=== PATIENT | male | born 1980 | race Caucasian/White ===

== ENCOUNTER 2017-09-13 16:21 | Inpatient (IN) | payer MEDICARE, OTHER ==
[~2017-09-13] VITALS: Ht 175.3 cm; Wt 68.0 kg
--- NOTE | 2017-09-13 16:31 | NUR ---
NICOLASA FROM HOME DT HIGH BLOOD SUGAR, ABDOMINAL PAIN WITH NAUSEA AND VOMITTING X 2 DAYS. PATIENT RECEIVED AWAKE, HOWEVER LETHARGIC. PATIENT IS SATING WELL ON ROOM AIR. SKIN IS WARM TO TOUCH AND NON DIAPHORETIC. PATIENT IS AFEBRILE. IV INSERTED TO LAC 20.BLOOD SAMPLE COLLECTED AND SENT TO LAB. MD SKY AT BEDSIDE.
[2017-09-13] MEDS ORDERED: NPH,100V2 SQ (16:38)
[2017-09-13] MEDS ORDERED: INSU100V11 SQ (16:38)
[2017-09-13] MEDS ORDERED: PANT40TA4 PO (16:40)
[2017-09-13 16:55] LABS: BASOPHILS # (AUTO) 1.1 /CMM (0.0-0.2); BASOPHILS % (AUTO) 4.4 % (0.0-2.0); EOSINOPHILS % (AUTO) 0.1 % (0.0-6.0); HEMATOCRIT 46 % (39-51); HEMOGLOBIN 16.1 g/dL (13.5-17.5); LYMPHOCYTES # (AUTO) 1.5 /CMM (0.8-4.8); LYMPHOCYTES % (AUTO) 6.1 % (20.0-44.0); MEAN CORPUSCULAR HEMOGLOBIN 30 PG (26.0-33.0); MEAN CORPUSCULAR HGB CONC 35 g/dl (31.0-36.0); MEAN CORPUSCULAR VOLUME 85 fL (80-96); MONOCYTES # (AUTO) 1.7 /CMM (0.1-1.30); MONOCYTES % (AUTO) 6.9 % (2.0-12.0); NEUTROPHILS # (AUTO) 19.9 /CMM (1.8-8.9); NEUTROPHILS % (AUTO) 82.5 % (43.0-81.0); PLATELET COUNT (AUTO) 433 /CMM (150-450); RDW COEFFICIENT OF VARIATION 13.1 (11.5-15.0); RED BLOOD CELL COUNT(AUTO) 5.39 MIL/uL (4.5-6.0); WHITE BLOOD COUNT (AUTO) 24.2 K/uL (4.3-11.0)
[2017-09-13] MEDS ORDERED: INSULIN REGULAR, HUMAN 100 UNIT/ML 10 ML VIAL IV ONE (17:00)
[2017-09-13] MEDS ORDERED: ONDANSETRON HCL/PF 4 MG/2 ML VIAL IVP ONE ×2 (17:00→19:00)
[2017-09-13] MEDS ORDERED: IV NS 0.9% 1,000 ML BAG IV ONE ×3 (17:00→18:30)
[2017-09-13 17:19] LABS: ALBUMIN 4.3 g/dL (3.4-5.0); BILIRUBIN,DIRECT 0.1 mg/dL (0.0-0.2); BILIRUBIN,TOTAL 0.5 mg/dL (0.2-1.0); CALCIUM, SERUM 9.9 mg/dL (8.5-10.1); CREATININE 2.4 mg/dL (0.6-1.3); POTASSIUM 5.1 mmol/L (3.5-5.1); TOTAL PROTEIN, SERUM 9.2 g/dL (6.4-8.2)
[2017-09-13] MEDS ORDERED: PIPERACILLIN /TAZOBACTAM 3.375 G in IV D5W 50 ML IV ONE (17:30)
--- NOTE | 2017-09-13 17:34 | NUR ---
UNABLE TO COLLECT URINE SAMPLE AT THIS TIME. TRICIA DID NOT AGREE WITH IN AND OUT CATH
--- NOTE | 2017-09-13 17:49 | NUR ---
CALLED NURSING SUP, REQUEST A BED.
--- NOTE | 2017-09-13 18:15 | NUR ---
PATIENT REFUSED SECOND LINE INSERTION. EXPLAINED RISKS AND BENEFITS
--- NOTE | 2017-09-13 18:16 | NUR ---
CALLED PHARMACY FOR INSULIN DRIP
[2017-09-13 18:18] LABS: BAND % (MANUAL) 19 % (0.0-5.0); LYMPHOCYTES % (MANUAL) 7 % (16-48); MONOCYTES % (MANUAL) 3 % (0-11.0); NEUTROPHILS % (MANUAL) 71 (42-76)
--- NOTE | 2017-09-13 18:20 | NUR ---
DR MAXWELL ON THE PHONE WITH DR SKY.
[2017-09-13 18:22] LABS: INR 0.94 (0.87-1.13)
[2017-09-13 18:23] LABS: ABG BASE EXCESS -5.3 mmol/L; ABG OXYGEN SATURATION 53.7 % (92.0-98.5); ABG PCO2 36.3 mmHg (35.0-45.0); ABG PO2 28.8 mmHg (75.0-100.0); COHb 0.9 % (0.5-1.5); MetHb 0.8 % (0.0-1.5); O2Hb 52.8 % (94.0-97.0); VENT MODE, BG ROOM AIR
[2017-09-13] MEDS ORDERED: INSULIN REGULAR, HUMAN 100 UNIT in IV NS 0.9% 99 ML IV PRN ×4 (18:30→19:30)
--- NOTE | 2017-09-13 18:31 | NUR ---
PT IS COMPLAINING OF ABDOMINAL PAIN, MD SKY MADE AWRE
[2017-09-13] MEDS ORDERED: MORPHINE SULFATE INJ 4 MG/ML DISP.SYRIN ONE (18:39)
[2017-09-13] MEDS ORDERED: ONDANSETRON HCL/PF 4 MG/2 ML VIAL ONE (18:39)
--- NOTE | 2017-09-13 18:47 | NUR ---
PT MEDICATED FOR PAIN
--- NOTE | 2017-09-13 18:47 | NUR ---
PATIENT TRANSPORTED TO ICU. VSS
[2017-09-13] MEDS ORDERED: MORPHINE SULFATE INJ 2 MG/ML DISP.SYRIN IV ONE (19:00)
[2017-09-13] MEDS ORDERED: IV NS 0.9% 1,000 ML IV PRN (19:03)
[2017-09-13 19:18] VITALS: BP 141/65
--- NOTE | 2017-09-13 19:18 | NUR ---
ICU/RN RECEIVED PT. FR ER VIA GURNEY TO ROOM 250 W/ ADMITTING DX OF DKA AND PANCREATITIS.PT ON INSULIN DRIP AT 6UNITS/HR,DECREASED TO 0.5UNITS PER HR.PER DKA PROTOCOL.RECEIVING 3RD LITER OF NS WIDE OPEN.PT SCREAMS AND UNCOOPERATIVE AT TIMES.
[2017-09-13 19:30] VITALS: BP 140/89
[2017-09-13] MEDS ORDERED: MAG HYDROX/AL HYDROX/SIMETH 30 ML UDC PO PRN (19:30)
[2017-09-13] MEDS ORDERED: ZOLPIDEM TARTRATE 5 MG TABLET PO PRN (19:30)
[2017-09-13] MEDS ORDERED: MAGNESIUM HYDROXIDE 30 ML UDC PO PRN (19:30)
[2017-09-13] MEDS ORDERED: Z GUARD REMEDY 2 OZ OINT TP PRN (19:30)
[2017-09-13] MEDS ORDERED: ACETAMINOPHEN 325 MG TABLET PO PRN (19:30)
[2017-09-13] MEDS ORDERED: ONDANSETRON HCL/PF 4 MG/2 ML VIAL IVP PRN (19:30)
[2017-09-13 20:00] VITALS: BP 124/66
[2017-09-13] MEDS: HYDROCODONE/APAP 5/325MG 1 EACH TABLET PO PRN (20:00)
[2017-09-13] MEDS: BLOOD SUGAR DIAGNOSTIC 1 EACH STRIP IN SCH ×3 (20:13→22:13)
[2017-09-13 20:48] LABS: MAGNESIUM 2.7 mg/dL (1.8-2.4); PHOSPHORUS 3.6 mg/dL (2.5-4.9)
[2017-09-13 21:00] VITALS: BP 133/76
[2017-09-13] MEDS: CEFTRIAXONE 1 G in IV D5W 50 ML IV SCH (21:38)
[2017-09-13 22:00] VITALS: BP 135/76
[2017-09-13 22:57] LABS: CALCIUM, SERUM 8.5 mg/dL (8.5-10.1); CREATININE 1.5 mg/dL (0.6-1.3); POTASSIUM 4.2 mmol/L (3.5-5.1)
[2017-09-13 23:00] VITALS: BP 125/79
[2017-09-13] MEDS ORDERED: IV D5/ 0.9% NACL 1,000 ML IV PRN (23:30)
--- NOTE | 2017-09-13 23:40 | NUR ---
ICU/RN CALL PLACED TO TO INFORM RE=INSULIN DRIP DC'DAND CONDITION OF PT.
--- NOTE | 2017-09-13 23:45 | NUR ---
ICU/RN DR MOMIN IN ICU AND REVIEWED DKA ALGORITHM.IV CHANGED TO D51/2 NS AT 1OOML/HR.PRIOR TO THAT D5NS AT 100/HR ORDERED BY ABOVE.
[2017-09-14] VITALS (13 sets, daily range): BP systolic 100–150; BP diastolic 32–88
[2017-09-14] MEDS ORDERED: DEXTROSE 50%-WATER 50 ML DISP.SYRIN IV PRN
[2017-09-14] MEDS ORDERED: BLOOD SUGAR DIAGNOSTIC 1 EACH STRIP IN SCH
[2017-09-14] MEDS: BLOOD SUGAR DIAGNOSTIC 1 EACH STRIP IN SCH ×8 (00:03→20:54)
[2017-09-14] MEDS: IV D5/0.45 NACL 1,000 ML IV PRN ×3 (00:11→12:00)
[2017-09-14] MEDS: HYDROCODONE/APAP 5/325MG 1 EACH TABLET PO PRN ×4 (01:53→22:47)
[2017-09-14 02:32] LABS: CALCIUM, SERUM 8.4 mg/dL (8.5-10.1); CREATININE 1.5 mg/dL (0.6-1.3); POTASSIUM 3.9 mmol/L (3.5-5.1)
--- NOTE | 2017-09-14 04:53 | NUR ---
ICU/RN BLOOD JQFMN=[id number]/DL,NO COVERAGE.PT CONFUSED AND DIS-ORIENTED AT TIMES AND ALSO TALKING TO SELF AND TELLING STORIES TO SELF,RE-ORIENTED TO PLACE TIME AND SURROUNDINGS.AT TIMES COOPERATIVE AT TIMES NOT.
[2017-09-14 05:22] LABS: HEMATOCRIT 36 % (39-51); HEMOGLOBIN 12.6 g/dL (13.5-17.5); LYMPHOCYTES # (AUTO) 1.3 /CMM (0.8-4.8); LYMPHOCYTES % (AUTO) 7.9 % (20.0-44.0); MEAN CORPUSCULAR HEMOGLOBIN 30 PG (26.0-33.0); MEAN CORPUSCULAR HGB CONC 35 g/dl (31.0-36.0); MEAN CORPUSCULAR VOLUME 86 fL (80-96); MONOCYTES # (AUTO) 0.9 /CMM (0.1-1.30); MONOCYTES % (AUTO) 5.7 % (2.0-12.0); NEUTROPHILS % (AUTO) 86.4 % (43.0-81.0); PLATELET COUNT (AUTO) 308 /CMM (150-450); RDW COEFFICIENT OF VARIATION 14.2 (11.5-15.0); RED BLOOD CELL COUNT(AUTO) 4.21 MIL/uL (4.5-6.0); WHITE BLOOD COUNT (AUTO) 16.2 K/uL (4.3-11.0)
[2017-09-14 05:41] LABS: ALBUMIN 3.2 g/dL (3.4-5.0); BILIRUBIN,TOTAL 0.3 mg/dL (0.2-1.0); CALCIUM, SERUM 8.2 mg/dL (8.5-10.1); CREATININE 1.4 mg/dL (0.6-1.3); MAGNESIUM 2.3 mg/dL (1.8-2.4); PHOSPHORUS 3.4 mg/dL (2.5-4.9); POTASSIUM 4.2 mmol/L (3.5-5.1); TOTAL PROTEIN, SERUM 6.8 g/dL (6.4-8.2)
--- NOTE | 2017-09-14 07:30 | NUR ---
BRANDING MACHINE TENDER INITIAL NOTES RECEIVED PATIENT IN BED SLEEPING, EASY TO AROUSE, NO DISTRESS NOTED, ALERT WITH PERIODS OF CONFUSION, ON TELE MONITORING SR 98 HR, RECEIVING FLUIDS D51/2 NS@ 100/ML, URINAL AT BEDSIDE, PATIENT CURRENTLY NPO. BED IN LOW AND LOCKED POSITION, WILL CONTINUE TO MONITOR.
--- NOTE | 2017-09-14 07:35 | NUR ---
ICU/RN REPORT AND CARE OF PT GIVEN TO GABE MOTNALVO.PT SCREAMING FOR WATER.
[2017-09-14] MEDS: INSULIN REGULAR, HUMAN 100 UNIT/ML 3 ML VIAL SQ PRN ×4 (09:09→21:07)
--- NOTE | 2017-09-14 11:15 | NUR ---
ALLIGATOR HUNTER NOTES PATIENT TRANSFER ORDERS GIVEN BY DR MAXWELL, PATIENT REPORT GIVEN TO LILIAN MONTALVO PATIENT TAKEN VIA BED TO ROOM 326. ALL BELONGINGS WITH PATIENT. ALL NEEDS MET AND PAIN MEDICATION ADMINISTERED.
--- NOTE | 2017-09-14 11:20 | NUR ---
MS RN OPENING NOTES PATIENT ARRIVED TO THE UNIT IN STABLE CONDITION. IN NO APPARENT DISTRESS. BEDSIDE RAILS ARE UPX2. BED IS LOCKED AND LOWERED. CALL LIGHT IS WITHIN REACH. WILL CONTINUE TO MONITOR.
[2017-09-14] MEDS: INSULIN NPH, HUMAN ISOPHANE 100 UNIT/ML VIAL SQ SCH ×2 (13:09→16:09)
--- NOTE | 2017-09-14 14:48 | NUR ---
Security Management Specialist Consult was requested by Dr. Larkin regarding homelessness. Pt is a 36 year old male who was admitted to [facility] for abdominal pain with nausea and vomiting. SW met with pt. bedside. 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 Patient is very confused. Pt. begins to speak about a topic and goes on a tangent unrelated to conversation. Pt continuously repeats that they took out my tonsils . Patient reports that he lives in an apartment in [place]. Per pt.s facesheet the address is [address] [place] [address]. Patient is orientedx4. Pts emergency contact is his father Samuel ([phone]). Patient denies use of drugs, alcohol, and cigarettes. Pt reports being hospitalized for Bipolar disorder in a facility in [place] for two months. Pt is unable to recall the name. Pt denies any current suicidal or homicidal ideation. Pt denies any auditory hallucinations. GANESH spoke with KATIA Alfaro in regards to pt.s disposition. SW offered pt. resources and pt. declined. GANESH called pt.s father and left a message to obtain more information about the pt. Plan: Get in contact with the pt.s father to obtain more information and to discuss resources needed.
--- NOTE | 2017-09-14 16:32 | NUR ---
Social Work Update: SW spoke to pt's father [place]([phone]) bedside to discuss discharge plan. Pt's father confirmed that pt. will be going home ([address], [address], [place] [address]). General Manager In Training provided Mental Health Resources for pt. including: [facility] ([address] [place] [address];[phone]), [facility] ([address] [place] [address];[phone]) and [facility] [place] ( [place] [address];[phone]).
[2017-09-14 17:59] LABS: CALCIUM, SERUM 7.9 mg/dL (8.5-10.1); CREATININE 1.3 mg/dL (0.6-1.3); POTASSIUM 3.6 mmol/L (3.5-5.1)
--- NOTE | 2017-09-14 19:02 | NUR ---
MS RN CLOSING NOTES PATIENT IS ALERT AND RESTING IN BED IN NO APPARENT DISTRESS. BEDSIDE RAILS ARE UPX2. BED IS LOCKED AND LOWERED. CALL LIGHT IS WITHIN REACH. ALL NEEDS WERE MET. WILL ENDORSE CARE TO SOFT HAT BINDER NURSE FOR ERYN.
--- NOTE | 2017-09-14 19:10 | NUR ---
MS/RN OPENING NOTES PT RECEIVED AWAKE, SITTING UP IN BED. A/OX2, CONFUSED. ON ROOM AIR, BREATHING EVEN AND UNLABORED. DENIES SOB OR PAIN AT THIS TIME. APPEARS COMFORTABLE. IV TO RFA PATENT AND INTACT RUNNING IVF ORDERED. BED IN LOW/LOCKED POSITION WITH CALL LIGHT IN REACH. SIDE RAILS UPX2 WITH BED ALARM ON FOR SAFETY. WILL CONTINUE TO MONITOR
--- NOTE | 2017-09-14 19:52 | NUR ---
Patient lives with family at [address] [facility], [address] [address]. He is ambulatory and independent with adl's. Patient reports hx of bipolar and had previous psyche inpatient admission. Addressing Machine Operator provided Mental Health Resources for pt. including: [facility] ([address] [place] [address];[phone]), [facility] ([address] [place] [address];[phone]) and [facility] ( [place] [address];[phone]).Current plan is to dc back home, patient father will provide ride. Addendum: 09/14/17 at 1953 by MARIS LAGUNA RN Amended: Links added.
[2017-09-14] MEDS: CEFTRIAXONE 1 G in IV D5W 50 ML IV SCH (20:54)
--- NOTE | 2017-09-14 21:08 | NUR ---
MS/RN NOTES BLOOD SUGAR=99, NO INSULIN COVERAGE PER SLIDING SCALE. WILL CONTINUE TO MONITOR FOR S/S OF HYPOGLYCEMIA
[2017-09-15] MEDS: BLOOD SUGAR DIAGNOSTIC 1 EACH STRIP IN SCH ×6 (00:57→20:58)
[2017-09-15] MEDS: INSULIN REGULAR, HUMAN 100 UNIT/ML 3 ML VIAL SQ PRN ×5 (01:00→21:16)
--- NOTE | 2017-09-15 01:15 | NUR ---
MS/RN NOTES BLOOD SUGAR=56. PULLED IV DEXTROSE PER PROTOCOL. EXPLAINED TO PT BLOOD SUGAR IS LOW AND WILL HAVE TO GIVE DEXTROSE IV. PT STRONGLY REFUSING ASKING FOR SOMETHING TO DRINK INSTEAD. EDUCATED PT X3, PT STILL REFUSING. STATES "IM NOT SHAKING OR SWEATING, IM OKAY. WHY TAKE IT IV WHEN I CAN DRINK". PO JUICE PROVIDED. RETAIL GIFT CARD MERCHANDISING NOTIFIED. WILL CONTINUE TO MONITOR FOR S/S OF HYPOGLYCEMIA
--- NOTE | 2017-09-15 02:22 | NUR ---
MS/RN NOTES BLOOD JPRMZ=148 POST PO INTAKE. WILL CONTINUE TO MONITOR
[2017-09-15] MEDS: IV D5/0.45 NACL 1,000 ML IV PRN ×2 (03:17→14:25)
--- NOTE | 2017-09-15 05:57 | NUR ---
MS/RN NOTES PT TOLERATED FULL LIQUIDS THROUGHOUT SHIFT. ADVANCED DIET TO SOFT CCHO.
--- NOTE | 2017-09-15 07:04 | NUR ---
MS/RN OPENING NOTES PT RESTING COMFORTABLY IN BED. AROUSABLE TO NAME. ON ROOM AIR, BREATHING EVEN AND UNLABORED. DENIES SOB OR PAIN AT THIS TIME. CONFUSED AT TIMES. PT ADVANCED TO SOFT CCHO DIET THIS AM. IV TO RFA PATENT AND INTACT RUNNING IVF ORDERED. NO SIGNIFICANT CHANGES OVERNIGHT. KEPT PT COMFORTABLE DURING SHIFT. ALL NEEDS MET. BED REMAINS IN LOW/LOCKED POSITION WITH CALL LIGHT IN REACH. SIDE RAILS UPX2. WILL ENDORSE TO DAY SHIFT RN ERYN.
--- NOTE | 2017-09-15 07:15 | NUR ---
RN OPENING NOTES RECEIVED PT. IN BED A&OX3. PT. IS BLIND IN BOTH EYES. BREATHING UNLABORED, AND EVENLY ON ROOM AIR. NO S/S 0F ACUTE DISTRESS. IV FLUIDS RUNNING AT 100 ML/HR. BED IS IN LOWEST, AND LOCKED POSITION. NON PITTING EDEMA IN BOTH LOWER EXTREMITIES. 2 SIDE RAILS UP. CALL LIGHT IS WITHIN REACH, AND ALL NEEDS MET. WILL CONTINUE TO ASSESS AND MONITOR.
[2017-09-15 08:00] VITALS: BP 108/66
[2017-09-15] MEDS: HYDROCODONE/APAP 5/325MG 1 EACH TABLET PO PRN (08:55)
[2017-09-15] MEDS: INSULIN NPH, HUMAN ISOPHANE 100 UNIT/ML VIAL SQ SCH ×2 (09:06→17:00)
[2017-09-15] MEDS ORDERED: MORPHINE SULFATE INJ 4 MG/ML DISP.SYRIN IV PRN (09:30)
[2017-09-15 14:33] LABS: CALCIUM, SERUM 8.2 mg/dL (8.5-10.1); CREATININE 0.8 mg/dL (0.6-1.3); POTASSIUM 3.3 mmol/L (3.5-5.1)
[2017-09-15 16:00] VITALS: BP 151/84
--- NOTE | 2017-09-15 17:33 | NUR ---
RN NOTES PT. HAD LOW BLOOD SUGAR, 55 MG/DL, PT. REFUSED DEXTROSE 50% IVP, AND CONSUMED 250 ML OF APPLE JUICE.
--- NOTE | 2017-09-15 17:53 | NUR ---
RN NOTES PT.'S BLOOD SUGAR WAS 54 MG/DL. PT. WAS GIVEN DEXTROSE 50% IVP, BLOOD SUGAR WAS RECHECKED AND BLOOD SUGAR IS NOW 204 MG/DL.
--- NOTE | 2017-09-15 19:20 | NUR ---
RN NOTES RECEIVED PT IN BED, AWAKE, ALERT AND ORIENTED X 3, ABLE TO MAKE NEEDS KNOWN, VERBALLY RESPONSIVE. NO SO NOTED, IN NO ACUTE DISTRESS, WITH NO C/O PAIN, CONTINUES TO RECEIVE IVF ORDERED. ALL PATIENT'S NEEDS ATTENDED TO. WILL [id number] TO MONITOR.
--- NOTE | 2017-09-15 19:35 | NUR ---
RN CLOSING NOTES PT. IN BED A&OX3. PT. IS BLIND IN BOTH EYES. BREATHING UNLABORED, AND EVENLY ON ROOM AIR. NO S/S 0F ACUTE DISTRESS. IV FLUIDS RUNNING AT 100 ML/HR. BED IS IN LOWEST, AND LOCKED POSITION. NON PITTING EDEMA IN BOTH LOWER EXTREMITIES. 2 SIDE RAILS UP. CALL LIGHT IS WITHIN REACH, AND ALL NEEDS MET. WILL ENDORSE REPORT TO NURSE.
[2017-09-15 20:00] VITALS: BP 148/90
[2017-09-15] MEDS: CEFTRIAXONE 1 G in IV D5W 50 ML IV SCH (20:58)
[2017-09-15 21:34] LABS: BASOPHILS # (AUTO) 0.1 /CMM (0.0-0.2); BASOPHILS % (AUTO) 2.2 % (0.0-2.0); EOSINOPHILS % (AUTO) 0.8 % (0.0-6.0); HEMATOCRIT 36 % (39-51); HEMOGLOBIN 12.1 g/dL (13.5-17.5); LYMPHOCYTES # (AUTO) 1.5 /CMM (0.8-4.8); LYMPHOCYTES % (AUTO) 28.2 % (20.0-44.0); MEAN CORPUSCULAR HEMOGLOBIN 29 PG (26.0-33.0); MEAN CORPUSCULAR HGB CONC 34 g/dl (31.0-36.0); MEAN CORPUSCULAR VOLUME 86 fL (80-96); MONOCYTES # (AUTO) 0.4 /CMM (0.1-1.30); MONOCYTES % (AUTO) 6.8 % (2.0-12.0); NEUTROPHILS # (AUTO) 3.3 /CMM (1.8-8.9); PLATELET COUNT (AUTO) 251 /CMM (150-450); RDW COEFFICIENT OF VARIATION 13.9 (11.5-15.0); RED BLOOD CELL COUNT(AUTO) 4.15 MIL/uL (4.5-6.0); WHITE BLOOD COUNT (AUTO) 5.3 K/uL (4.3-11.0)
[2017-09-16] MEDS: IV D5/0.45 NACL 1,000 ML IV PRN (00:41)
[2017-09-16] MEDS: BLOOD SUGAR DIAGNOSTIC 1 EACH STRIP IN SCH ×5 (01:24→17:03)
--- NOTE | 2017-09-16 06:39 | NUR ---
RN CLOSING NOTES PATIENT IN BED, ALERT AND ORIENTED, VERBALLY RESPONSIVE, ABLE TO MAKE NEEDS KNOWN, NO SOB, BREATHING EVEN AND UNLABORED, IN NO ACUTE DISTRESS. ALL PATIENT'S NEEDS ATTENDED TO. WILL ENDORSE TO AM SHIFT NURSE FOR CONTINUITY OF CARE.
--- NOTE | 2017-09-16 07:55 | NUR ---
RN OPENING NOTES RECEIVED PT. IN BED RESTING. BREATHING UNLABORED, AND EVENLY ON ROOM AIR. NO S/S 0F ACUTE DISTRESS. IV FLUIDS RUNNING AT 100 ML/HR. PT. IS BLIND IN BOTH EYES, AND BED ALARM IS ON. BED IS IN LOWEST, AND LOCKED POSITION. EDEMA IN BOTH LOWER EXTREMITIES. 2 SIDE RAILS UP. PER RN PT. TOLERATED FULL LIQUID DIET, PER MD ORDERS OKAY TO ADVANCE DIET TO [facility] REGULAR. CALL LIGHT IS WITHIN REACH, AND ALL NEEDS MET. WILL CONTINUE TO ASSESS AND MONITOR.
[2017-09-16 08:00] VITALS: BP_SYST 120; BP_SYST 85; BP_DIAS 59; BP_DIAS 79
[2017-09-16] MEDS ORDERED: ALBUMIN 25% 25 GM in PREMIX 1 EA IV PRN (08:00)
[2017-09-16] MEDS: INSULIN REGULAR, HUMAN 100 UNIT/ML 3 ML VIAL SQ PRN ×2 (09:07→13:03)
[2017-09-16] MEDS: INSULIN NPH, HUMAN ISOPHANE 100 UNIT/ML VIAL SQ SCH (09:08)
[2017-09-16] MEDS ORDERED: POTASSIUM CHLORIDE 20 MEQ TAB.PRT.SR PO ONE (10:00)
[2017-09-16] MEDS ORDERED: FLU VACC QS 2017-18(36MOS+)/PF 0.5 ML DISP.SYRIN IM ONE (15:30)
[2017-09-16 16:00] VITALS: BP 139/96
--- NOTE | 2017-09-16 17:30 | NUR ---
MIXER DIAMOND POWDER NOTES PT. WAS DISCHARGE HOME IN MEDICALLY STABLE CONDITION, AND LEFT WITH HIS FATHER ALONGSIDE. PT. LEFT BY TAXI. DISCHARGE INSTRUCTIONS WERE PROVIDED WITH EDUCATION TO PT. AND HIS FATHER. ALL QUESTIONS WERE ANSWERED. PT. IS BLIND IN BOTH EYES, AND DISCHARGE PAPERS WERE SIGNED BY PT.'S FATHER. PRESCRIPTION WAS GIVEN TO PATIENT, WITH EDUCATION. IV, AND ID BAND WAS REMOVED WITHOUT COMPLICATIONS. PT. LEFT ROOM BY WHEELCHAIR WITH HIS BELONGINGS.
== END 2017-09-16 17:15 | disposition home or self-care (01) | DRG 438 ==
LOC: ER 16:24 → ICU 18:35 → MED 09-14 11:22
PROVIDERS: ADMIT Internal Medicine; ATTEND Internal Medicine
DX: K85.90 Acute pancreatitis without necrosis or infection, unspecified (principal); N17.0 Acute kidney failure with tubular necrosis; G93.41 Metabolic encephalopathy; E11.10 Type 2 diabetes mellitus with ketoacidosis without coma; Z79.4 Long term (current) use of insulin; H54.7 Unspecified visual loss; E11.65 Type 2 diabetes mellitus with hyperglycemia
CPT/HCPCS: 36415; 36600; 71045-TC; 80048-TC; 80053-TC; 80061-TC; 80076-TC; 82803-TC; 82962-TC; 83690-TC; 83735-TC; 84100-TC; 84484-TC; 85025-TC; 85730-TC; 87081-TC; A4216; A4606; J0696; J1815; J2270; J2405; J2543; J3490; J7030; J7042; J7060; P9047; Q2036; Z7610

== ENCOUNTER 2019-08-20 10:54 | Emergency (ER) | payer MEDICARE, OTHER ==
[~2019-08-20] VITALS: Ht 170.2 cm; Wt 77.1 kg
[~2019-08-20 10:54] MED LIST: INSU100V11 SQ; NPH,100V2 SQ; PANT40TA4 PO
[2019-08-20 11:02] VITALS: BP 122/79
--- NOTE | 2019-08-20 11:23 | NUR ---
SEEN AND EXAMINED BY
--- NOTE | 2019-08-20 11:29 | NUR ---
ROR ENGINEER AT BEDSIDE FOR XRAY.
--- NOTE | 2019-08-20 12:38 | NUR ---
Patient discharged to home in stable condition. Written and verbal after care instructions given. Patient verbalizes understanding of instruction.
== END 2019-08-20 12:39 | disposition home or self-care (01) ==
LOC: ER 10:54
DX: S90.31XA Contusion of right foot, initial encounter (principal); E11.9 Type 2 diabetes mellitus without complications; Z79.4 Long term (current) use of insulin; Z79.899 Other long term (current) drug therapy; X58.XXXA Exposure to other specified factors, initial encounter; Y93.89 Activity, other specified; Y92.89 Other specified places as the place of occurrence of the external cause; Y99.8 Other external cause status
CPT/HCPCS: 73650-TC

== ENCOUNTER 2024-06-02 12:49 | Inpatient (IN) | payer MEDICARE, OTHER ==
[~2024-06-02] VITALS: Ht 170.2 cm; Wt 63.5 kg
[2024-06-02] VITALS (8 sets, daily range): BP systolic 84–113; BP diastolic 59–68; TEMP 97.5–97.7; O2SAT 100
[~2024-06-02 12:49] MED LIST changes: -PANT40TA4 PO; +PANT40TA49 PO
[2024-06-02] MEDS: IV NS 0.9% 1,000 ML BAG IV ONE (13:20)
[2024-06-02 13:42] LABS: BASOPHILS % (AUTO) 0.3 % (0.0-2.0); EOSINOPHILS % (AUTO) 0.1 % (0.0-6.0); HEMATOCRIT 39 % (39-51); HEMOGLOBIN 12.8 g/dL (13.5-17.5); LYMPHOCYTES # (AUTO) 0.6 K/uL (0.8-4.8); LYMPHOCYTES % (AUTO) 6.9 % (20.0-44.0); MEAN CORPUSCULAR HEMOGLOBIN 29 PG (26.0-33.0); MEAN CORPUSCULAR HGB CONC 33 g/dl (31.0-36.0); MEAN CORPUSCULAR VOLUME 89 fL (80-96); MONOCYTES # (AUTO) 0.2 K/uL (0.1-1.30); MONOCYTES % (AUTO) 2.6 % (2.0-12.0); NEUTROPHILS # (AUTO) 7.5 K/uL (1.8-8.9); NEUTROPHILS % (AUTO) 90.1 % (43.0-81.0); PLATELET COUNT (AUTO) 306 K/uL (150-450); RED BLOOD CELL COUNT(AUTO) 4.35 MIL/uL (4.5-6.0); RED CELL DISTRIBUTION WIDTH 14.1 % (11.5-15.0); WHITE BLOOD COUNT (AUTO) 8.3 K/uL (4.3-11.0)
[2024-06-02 14:00] LABS: ALANINE AMINOTRANSFERASE 14 U/L (12-78); ALBUMIN 3.9 g/dL (3.4-5.0); ALKALINE PHOSPHATASE 117 U/L (46-116); ASPARTATE AMINOTRANSFERASE 17 U/L (15-37); BILIRUBIN,TOTAL 0.9 mg/dL (0.2-1.0); CALCIUM, SERUM 9.1 mg/dL (8.5-10.1); CARBON DIOXIDE 13 mmol/L (21-32); CHLORIDE 94 mmol/L (98-107); CREATININE 1.7 mg/dL (0.6-1.3); SODIUM SERUM 133 mmol/L (136-145); TOTAL PROTEIN, SERUM 7.4 g/dL (6.4-8.2); UREA NITROGEN, BLOOD 35 mg/dL (7-18)
[2024-06-02 14:04] LABS: GLUCOSE 620 mg/dL (74-106); POTASSIUM 6.3 mmol/L (3.5-5.1)
[2024-06-02 14:08] LABS: ACETONE, SERUM SMALL (NEGATIVE)
[2024-06-02] MEDS ORDERED: INSULIN REGULAR, HUMAN 100 UNITS in IV NS 0.9% 100 ML IV PRN (14:30)
[2024-06-02] MEDS: IV NS 0.9% 1,000 ML IV PRN (14:30)
[2024-06-02] MEDS ORDERED: INSU100I19 SQ (14:33)
[2024-06-02] MEDS: INSULIN REGULAR, HUMAN 100 UNITS in IV NS 0.9% 99 ML IV PRN (14:50)
[2024-06-02] MEDS ORDERED: ACETAMINOPHEN 325 MG TABLET PO PRN (15:00)
[2024-06-02] MEDS ORDERED: MORPHINE SULFATE INJ 2 MG/ML DISP.SYRIN IV PRN (15:00)
[2024-06-02] MEDS ORDERED: ONDANSETRON HCL/PF 4 MG/2 ML VIAL IVP PRN (15:00)
[2024-06-02 15:19] LABS: CALCIUM, SERUM 9.1 mg/dL (8.5-10.1); CREATININE 1.7 mg/dL (0.6-1.3); MAGNESIUM 2.3 mg/dL (1.8-2.4); PHOSPHORUS 7.7 mg/dL (2.5-4.9)
[2024-06-02 15:23] LABS: POTASSIUM 6.3 mmol/L (3.5-5.1)
[2024-06-02] MEDS: INSULIN REGULAR, HUMAN 100 UNIT in IV NS 0.9% 99 ML IV PRN (16:07)
[2024-06-02] MEDS: BLOOD SUGAR DIAGNOSTIC 1 EACH STRIP IN SCH ×2 (16:08→16:10)
[2024-06-02] MEDS: IV D5/0.45 NACL 1,000 ML IV PRN (16:08)
[2024-06-02 17:01] LABS: CALCIUM, SERUM 8.5 mg/dL (8.5-10.1); CREATININE 1.5 mg/dL (0.6-1.3); MAGNESIUM 2.3 mg/dL (1.8-2.4); PHOSPHORUS 6.1 mg/dL (2.5-4.9); POTASSIUM 4.8 mmol/L (3.5-5.1)
[2024-06-02] MEDS: BLOOD SUGAR DIAGNOSTIC 1 EACH STRIP IN ONE (20:10)
[2024-06-02 20:47] LABS: ALBUMIN 3.2 g/dL (3.4-5.0); BILIRUBIN,TOTAL 0.6 mg/dL (0.2-1.0); CALCIUM, SERUM 8.7 mg/dL (8.5-10.1); CREATININE 1.5 mg/dL (0.6-1.3); TOTAL PROTEIN, SERUM 7.3 g/dL (6.4-8.2)
[2024-06-02] MEDS: HEPARIN SODIUM, PORCINE 5000 UNITS/1 ML VIAL SQ SCH (21:00)
[2024-06-02 21:14] LABS: POTASSIUM 4.4 mmol/L (3.5-5.1)
[2024-06-02] MEDS ORDERED: INSULIN REGULAR, HUMAN 100 UNIT/ML 10 ML VIAL ONE (23:09)
[2024-06-03] VITALS (12 sets, daily range): BP systolic 83–112; BP diastolic 54–68; TEMP 97.4–98.6; O2SAT 94–100
[2024-06-03 00:31] LABS: ALBUMIN 2.9 g/dL (3.4-5.0); BILIRUBIN,TOTAL 0.3 mg/dL (0.2-1.0); CALCIUM, SERUM 8.1 mg/dL (8.5-10.1); CREATININE 1.3 mg/dL (0.6-1.3); POTASSIUM 3.8 mmol/L (3.5-5.1); TOTAL PROTEIN, SERUM 6.2 g/dL (6.4-8.2)
[2024-06-03] MEDS ORDERED: *INSULIN REGULAR(HUMULIN R)HUM 100 UNIT/ML VIAL SQ PRN (01:30)
[2024-06-03] MEDS: INSULIN REGULAR, HUMAN 100 UNIT/ML 3 ML VIAL SQ PRN (02:58)
[2024-06-03] MEDS: INSULIN GLARGINE, 100 UNIT/ML CARTRIDGE SQ SCH (03:02)
[2024-06-03] MEDS ORDERED: IV NS 0.9% 1,000 ML BAG IV PRN (06:30)
[2024-06-03] MEDS: IV NS 0.9% 1,000 ML IV PRN (06:37)
[2024-06-03] MEDS: BLOOD SUGAR DIAGNOSTIC 1 EACH STRIP IN SCH (08:01)
[2024-06-03] MEDS ORDERED: INSU100C10 SQ (14:26)
[2024-06-03] MEDS: DEXTROSE 50%-WATER 50 ML DISP.SYRIN IV PRN (23:58)
[2024-06-04 05:00] VITALS: BP 110/67; TEMP 97.6; O2SAT 99
[2024-06-04 08:00] VITALS: BP 125/94; TEMP 98.1; O2SAT 95
== END 2024-06-04 15:50 | disposition home health service (06) | DRG 637 ==
LOC: ER 12:53 → ICU 15:05 → TELE 06-03 10:22 → MED 06-03 13:51 → UNDODISIN 06-03 21:00
PROVIDERS: ADMIT Internal Medicine; ATTEND Internal Medicine
DX: E11.10 Type 2 diabetes mellitus with ketoacidosis without coma (principal); N17.0 Acute kidney failure with tubular necrosis; E87.1 Hypo-osmolality and hyponatremia; T38.3X6A Underdosing of insulin and oral hypoglycemic [antidiabetic] drugs, initial encounter; Z91.148 Patient's other noncompliance with medication regimen for other reason; Z79.4 Long term (current) use of insulin; Y92.89 Other specified places as the place of occurrence of the external cause; M89.8X9 Other specified disorders of bone, unspecified site; H54.8 Legal blindness, as defined in USA; E87.5 Hyperkalemia; E86.9 Volume depletion, unspecified; D64.9 Anemia, unspecified
CPT/HCPCS: 36415; 80048-TC; 80053-TC; 82010-TC; 82962-TC; 83735-TC; 84100-TC; 85025-TC; 87081-TC; A4223; G0378; J1644; J1815; J3490; J7030